=== PATIENT | female | born 1970 | race Two or more races ===

== ENCOUNTER → 2018-06-08 | Outpatient (CLI) | payer OTHER ==
[~2018-06-08] MED LIST: LIDOCAINE 1%/EPI 1:100,000 20 ML VIAL. INJ ONE
--- NOTE | 2018-06-18 10:45 | RAD ---
Ultrasound-guided left breast biopsy, 06/08/2018: History: Suspicious breast nodule An outside ultrasound exam demonstrated a mass at the 1:00 location in the left breast. Under local anesthesia, aseptic conditions and sonographic guidance the Typeform biopsy instrument was passed into this mass via a lateral approach. Multiple 12-gauge vacuum-assisted core samples were obtained. A biopsy marker was deposited the biopsy site. The biopsy instrument was then removed and hemostasis obtained. Two-view postprocedural mammograms were then obtained to document position of the biopsy marker. The patient tolerated the procedure well and left the department in good condition. The substernal pathologic report indicated the presence of high-grade invasive ductal carcinoma. This is a concordant finding. Note: Receipt of this pathology report by personnel in Dr. Arambula's office was confirmed by a phone call at 10:39 AM on 06/18/2018.
== END | disposition home or self-care (01) ==
LOC: US 13:41
PROVIDERS: ATTEND Surgery
DX: C50.912 Malignant neoplasm of unspecified site of left female breast (principal)
CPT/HCPCS: 19083; 77065; 88305; 88341; 88342; 88361; C1713; 19085; 76942